=== PATIENT | female | born 1985 | race Two or more races ===

== ENCOUNTER 2016-10-28 02:38 | Emergency (ER) | payer SELFPAY ==
[~2016-10-28] VITALS: Ht 157.5 cm; Wt 59.0 kg
[2016-10-28] MEDS ORDERED: Thiamine HCl 100 MG in D5W 55 ML IVPB SCH (02:45)
[2016-10-28 03:07] LABS: BASOPHILS % (AUTO) 1.3 % (0.0-2.0); LYMPHOCYTES % (AUTO) 39.8 % (20.0-45.0); MEAN CORPUSCULAR HEMOGLOBIN 31.6 PG (27.0-31.0); MEAN CORPUSCULAR HGB CONC 33.2 G/DL (32.0-36.0); MEAN CORPUSCULAR VOLUME 95 FL (80-99); MEAN PLATELET VOLUME 6.1 FL (6.5-10.1); MONOCYTES % (AUTO) 7.9 % (1.0-10.0); NEUTROPHILS % (AUTO) 48.9 % (45.0-75.0); PLATELET COUNT 436 K/UL (150-450); RED BLOOD COUNT 4.27 M/UL (4.20-5.40); RED CELL DISTRIBUTION WIDTH 12.7 % (11.6-14.8); WHITE BLOOD COUNT 7.3 K/UL (4.8-10.8)
[2016-10-28 03:15] LABS: APPEARANCE,URINE CLEAR; KETONES,URINE NEGATIVE (NEGATIVE); LEUKOCYTE ESTERASE ,URINE NEGATIVE (NEGATIVE); NITRITE,URINE NEGATIVE (NEGATIVE); PH,URINE 7 (4.5-8.0); PROTEIN,URINE NEGATIVE (NEGATIVE); UROBILINOGEN,URINE NORMAL MG/DL (0.0-1.0)
[2016-10-28] MEDS ORDERED: Thiamine HCl 100mg/ml Inj ONE (03:20)
[2016-10-28 03:35] LABS: ACETAMINOPHEN < 10 ug/mL (10-30); ALANINE AMINOTRANSFERASE 17 U/L (3-33); ALBUMIN/GLOBULIN RATIO 1.7 (1.0-2.7); ALCOHOL 404 mg/dL; ANION GAP 20 (5-15); ASPARTATE AMINO TRANSFERASE 21 U/L (5-40); CALCIUM 8.8 mg/dL (8.6-10.2); CARBON DIOXIDE 24 mEQ/L (20-30); CHLORIDE 99 mEQ/L (98-107); CREATININE 0.8 mg/dL (0.5-0.9); GLOMERULAR FILTRATION RATE > 60 mL/min (>60); HEMOLYSIS 18; POTASSIUM 3.2 mEQ/L (3.4-4.9); SODIUM 143 mEQ/L (135-145); TOTAL PROTEIN 7.3 g/dL (6.6-8.7)
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
[2016-10-28 06:23] VITALS: BP 104/61
[2016-10-28 08:37] VITALS: BP 106/76
--- NOTE | 2016-10-28 08:53 | Diagnostic Imaging Report ---
Indications: Altered level of consciousness Technique: Spiral acquisitions obtained through the brain. Angled axial and coronal 5 x 5 mm slices were reconstructed. Total dose length product 1467 mGycm. CTDI vol(s) 70 mGy Comparison: None Findings: There is considerable image degradation due to motion artifact. No acute hemorrhage or edema. No mass effect or midline shift. Normal escobar-white differentiation. Intact calvarium. Visualized orbits and sinuses are unremarkable. Impression: Somewhat limited exam due to motion artifact No gross acute intracranial bleed or mass effect This agrees with the preliminary interpretation provided overnight by [facility]. The CT scanner at [facility] is accredited by the [employer] and the scans are performed using protocols designed to limit radiation exposure to as low as reasonably achievable to attain images of sufficient resolution adequate for diagnostic evaluation.
[2016-10-28 09:03] VITALS: BP 98/61
--- NOTE | 2016-10-28 10:50 | Diagnostic Imaging Report ---
Indication: Chest pain Technique: One view of the chest Comparison: None Findings: The heart is enlarged. Hazy opacity of the left lung diffusely, probably reflects overlying soft tissue, but parenchymal disease is not excludable. Pleural spaces are clear Impression: Cardiomegaly. Doubt acute process; parenchymal disease in the left lung not completely excludable. Correlate with clinical findings This agrees with the preliminary interpretation provided by the emergency room physician
== END 2016-10-28 09:36 | disposition home or self-care (01) ==
LOC: EDBD 02:38 → EMR 02:45
DX: F10.129 Alcohol abuse with intoxication, unspecified (principal)
CPT/HCPCS: 36415; 70450; 71010; 80053; 80300; 81003; 81025; 82550; 85025; 93005; 96360; 96361; 99284; G0480; 80329